=== PATIENT | female | born 1960 | race Asian ===

== ENCOUNTER 2022-12-12 20:46 | Inpatient (IN) | payer OTHER ==
[2022-12-12] MEDS ORDERED: ACETAMINOPHEN 1000 MG/100 ML BAG IVPB ONE (22:20)
[2022-12-12] MEDS ORDERED: ONDANSETRON 4 MG/2 ML VIAL IVPUSH ONE (22:48)
[2022-12-12 23:42] LABS: HEMATOCRIT 40.7 % (32.4-45.2); HEMOGLOBIN 13.7 GM/dL (10.7-15.3); MCH 28.3 pg (25.7-33.7); MCHC 33.5 g/dl (32.0-36.0); MEAN CELL VOLUME 84.3 fl (80-96); RBC 4.83 M/mm3 (3.60-5.2); RDW 14.4 % (11.6-15.6); WHITE BLOOD COUNT 18.6 K/mm3 (4.0-10.0)
[2022-12-12 23:46] LABS: EPI CELLS 15 /uL (0-25.1); HYALINE CASTS 1 /uL (0-3.1); URINE APPEARANCE CLEAR; URINE BACTERIA 12 /uL (0-1359); URINE BILIRUBIN NEGATIVE (NEGATIVE); URINE COLOR YELLOW; URINE GLUCOSE (UA) 3+ (NEGATIVE); URINE KETONE 4+ (NEGATIVE); URINE LEUK ESTERASE 1+ (NEGATIVE); URINE NITRITE NEGATIVE (NEGATIVE); URINE PROTEIN 1+ (NEGATIVE); URINE RBC 16 /uL (0-23.9); URINE UROBILINOGEN 0.2 mg/dL (0.2-1.0); URINE WBC 250 /uL (0-25.8)
[2022-12-12 23:51] LABS: INR 0.89 (0.83-1.09); PROTHROMBIN TIME (PATIENT) 10.3 SEC (9.7-13.0)
[2022-12-12 23:53] LABS: ACTIVATED PTT 30.7 SECONDS (25.2-36.5)
[2022-12-13 00:20] LABS: ANISOCYTOSIS 2+; MACROCYTOSIS 0; OVALOCYTE 2+
[2022-12-13 00:22] LABS: PLATELET COUNT 252 10^3/uL (134-434)
[2022-12-13 00:23] LABS: MEAN PLT VOLUME 7.8 fl (7.5-11.1)
[2022-12-13 00:31] LABS: POTASSIUM 3.7 mmol/L (3.5-5.1)
[2022-12-13 00:34] LABS: ALBUMIN 4.4 g/dl (3.4-5.0); CALCIUM 9.2 mg/dL (8.5-10.1)
[2022-12-13 00:35] LABS: BLOOD UREA NITROGEN 13.4 mg/dL (7-18); MAGNESIUM 1.4 mg/dL (1.8-2.4)
[2022-12-13 00:38] LABS: CREATININE 1.1 mg/dL (0.55-1.3)
[2022-12-13 00:39] LABS: BILIRUBIN,TOTAL 0.9 mg/dL (0.2-1); TOT PROT 8.3 g/dl (6.4-8.2)
[2022-12-13] MEDS ORDERED: CEFTRIAXONE 1,000 MG in DEXTROSE 5%-WATER - 50 ML IVPB ONE (03:48)
[2022-12-13] MEDS ORDERED: MAGNESIUM SULF 50% (8.12 MEQ/2 ML-1 GM VIAL) IVPB ONE (03:55)
[2022-12-13] MEDS ORDERED: CEFTRIAXONE 1 GM/50 ML BAG ONE ×2 (05:42→11:36)
[2022-12-13] MEDS ORDERED: MAGNESIUM SULFATE IN WATER 2 GM/50 ML IVPB IVPB ONE (05:42)
[2022-12-13] MEDS ORDERED: ACETAMINOPHEN 1000 MG/100 ML BAG IVPB ONE (06:50)
[2022-12-13] MEDS ORDERED: ACETAMINOPHEN INJECTION 100 ML IVPB ONE ×3 (06:50→18:40)
[2022-12-13] MEDS ORDERED: DEXTROSE 5%-0.45% SALINE 1,000 ML IV SCH (10:00)
[2022-12-13] MEDS ORDERED: CEFTRIAXONE 1 GM in DEXTROSE 5%-WATER - 50 ML IVPB SCH (10:00)
[2022-12-13] MEDS ORDERED: ENOXAPARIN NA (PORCINE) 40 MG/0.4 ML DISP.SYRIN SQ SCH (10:00)
[2022-12-13] MEDS ORDERED: ENOXAPARIN NA (PORCINE) 40 MG/0.4 ML DISP.SYRIN SQ ONE (11:36)
[2022-12-13] MEDS: ACETAMINOPHEN 1000 MG/100 ML BAG IVPB PRN ×2 (12:53→18:30)
[2022-12-13] MEDS ORDERED: ONDANSETRON 4 MG/2 ML VIAL IVPUSH PRN (17:14)
[2022-12-13] MEDS ORDERED: MIDAZOLAM HCL 2 MG/2 ML SINGLE DOSE VIAL ONE (17:45)
[2022-12-13] MEDS ORDERED: PROPOFOL 20 ML ONE ×2 (17:45→18:05)
[2022-12-13] MEDS ORDERED: IOHEXOL 180 MG/1 ML ML IJ ONE (18:07)
[2022-12-13] MEDS ORDERED: KETOROLAC TROMETHAMINE 30 MG/1 ML VIAL ONE (18:42)
[2022-12-13] MEDS ORDERED: ACETAMINOPHEN 1000 MG/100 ML BAG IVPB PRN (19:32)
[2022-12-13] MEDS: DEXTROSE 5%-0.45% SALINE 1,000 ML IV SCH (20:25)
[2022-12-13] MEDS ORDERED: INSULIN SLIDING SCALE (NOVOLOG) 1 VIAL SQ SCH (22:00)
[2022-12-13 22:46] VITALS: BMI 22.0
[2022-12-13] MEDS: INSULIN SLIDING SCALE (NOVOLOG) 1 VIAL SQ SCH (22:55)
[2022-12-14] MEDS: INSULIN SLIDING SCALE (NOVOLOG) 1 VIAL SQ SCH ×4 (06:00→21:47)
[2022-12-14] MEDS: DEXTROSE 5%-0.45% SALINE 1,000 ML IV SCH (07:47)
[2022-12-14] MEDS: ONDANSETRON 4 MG/2 ML VIAL IVPUSH PRN (09:22)
[2022-12-14] MEDS ORDERED: ENOXAPARIN NA (PORCINE) 40 MG/0.4 ML DISP.SYRIN SQ SCH (10:00)
[2022-12-14] MEDS: CEFTRIAXONE 1 GM in DEXTROSE 5%-WATER - 50 ML IVPB SCH (11:57)
[2022-12-14 11:59] LABS: HEMATOCRIT 36.7 % (32.4-45.2); HEMOGLOBIN 12.3 GM/dL (10.7-15.3); MCH 28.1 pg (25.7-33.7); MCHC 33.4 g/dl (32.0-36.0); MEAN PLT VOLUME 8.4 fl (7.5-11.1); PLATELET COUNT 85 10^3/uL (134-434); RBC 4.37 M/mm3 (3.60-5.2); RDW 14.5 % (11.6-15.6); WHITE BLOOD COUNT 16.8 K/mm3 (4.0-10.0)
[2022-12-14 12:24] LABS: POTASSIUM 3.2 mmol/L (3.5-5.1)
[2022-12-14 12:34] LABS: CALCIUM 7.9 mg/dL (8.5-10.1)
[2022-12-14 12:35] LABS: BLOOD UREA NITROGEN 31.6 mg/dL (7-18)
[2022-12-14 12:38] LABS: CREATININE 1.9 mg/dL (0.55-1.3)
[2022-12-14 12:40] LABS: BILIRUBIN,TOTAL 0.7 mg/dL (0.2-1)
[2022-12-14 12:42] LABS: ALBUMIN 2.7 g/dl (3.4-5.0); TOT PROT 6.1 g/dl (6.4-8.2)
[2022-12-14 12:44] LABS: ANISOCYTOSIS 0; MACROCYTOSIS 0
[2022-12-14] MEDS ORDERED: ACETAMINOPHEN 1000 MG/100 ML BAG IVPB PRN (19:25)
[2022-12-14] MEDS ORDERED: POTASSIUM CHLORIDE ORAL LIQUID 20 MEQ/15 ML PO ONE (19:27)
[2022-12-14] MEDS: KCL 10 MEQ IVPB 10 MEQ/100 ML INFUS.BAG IVPB SCH ×3 (19:30→21:47)
[2022-12-15] MEDS: DEXTROSE 5%-0.45% SALINE 1,000 ML IV SCH ×2 (05:19→12:17)
[2022-12-15] MEDS: INSULIN SLIDING SCALE (NOVOLOG) 1 VIAL SQ SCH ×4 (06:04→22:05)
[2022-12-15 09:49] LABS: HEMATOCRIT 35.8 % (32.4-45.2); MCH 27.8 pg (25.7-33.7); MCHC 33.3 g/dl (32.0-36.0); MEAN CELL VOLUME 83.5 fl (80-96); MEAN PLT VOLUME 8.9 fl (7.5-11.1); PLATELET COUNT 43 10^3/uL (134-434); RBC 4.29 M/mm3 (3.60-5.2); RDW 14.8 % (11.6-15.6); WHITE BLOOD COUNT 24.2 K/mm3 (4.0-10.0)
[2022-12-15 10:11] LABS: POTASSIUM 3.5 mmol/L (3.5-5.1)
[2022-12-15 10:17] LABS: ALBUMIN 2.5 g/dl (3.4-5.0); BLOOD UREA NITROGEN 25.8 mg/dL (7-18)
[2022-12-15 10:23] LABS: BILIRUBIN,TOTAL 0.6 mg/dL (0.2-1); TOT PROT 5.7 g/dl (6.4-8.2)
[2022-12-15 10:44] LABS: ANISOCYTOSIS 0; HELMET CELLS 0; HOWELL-JOLLY BODIES 0; MACROCYTOSIS 0; OVALOCYTE 0; ROULEAU 0; SICKELED CELLS 0; TARGET CELLS 0; TEAR DROP CELLS 0; TOXIC GRANULATION 0
[2022-12-15] MEDS: CEFTRIAXONE 1 GM in DEXTROSE 5%-WATER - 50 ML IVPB SCH (12:15)
[2022-12-15] MEDS: AZTREONAM 1 GM in DEXTROSE 5%-WATER 100 ML IVPB SCH (18:32)
[2022-12-16] MEDS: AZTREONAM 1 GM in DEXTROSE 5%-WATER 100 ML IVPB SCH ×3 (01:44→16:26)
[2022-12-16] MEDS: INSULIN SLIDING SCALE (NOVOLOG) 1 VIAL SQ SCH ×4 (06:00→22:48)
[2022-12-16] MEDS ORDERED: AZTREONAM 1 GM VIAL (RESTRICTED TO ID) ONE (08:04)
[2022-12-16] MEDS: ONDANSETRON 4 MG/2 ML VIAL IVPUSH PRN (08:19)
[2022-12-16] MEDS: metoPROLOL SUCCINATE 25 MG TAB.SR.24H (FP) PO SCH (11:07)
[2022-12-16 11:33] LABS: HEMATOCRIT 38.1 % (32.4-45.2); HEMOGLOBIN 12.7 GM/dL (10.7-15.3); MCH 27.6 pg (25.7-33.7); MCHC 33.3 g/dl (32.0-36.0); MEAN CELL VOLUME 82.8 fl (80-96); MEAN PLT VOLUME 9.6 fl (7.5-11.1); PLATELET COUNT 43 10^3/uL (134-434); RBC 4.59 M/mm3 (3.60-5.2); RDW 14.9 % (11.6-15.6); WHITE BLOOD COUNT 18.4 K/mm3 (4.0-10.0)
[2022-12-16] MEDS ORDERED: INSULIN SLIDING SCALE (NOVOLOG) 1 VIAL SQ ONE ×2 (11:39→16:44)
[2022-12-16 11:52] LABS: POTASSIUM 3.3 mmol/L (3.5-5.1)
[2022-12-16 11:55] LABS: CALCIUM 8.5 mg/dL (8.5-10.1)
[2022-12-16 11:57] LABS: ALBUMIN 2.5 g/dl (3.4-5.0)
[2022-12-16 11:59] LABS: CREATININE 0.7 mg/dL (0.55-1.3)
[2022-12-16 12:01] LABS: BILIRUBIN,TOTAL 0.6 mg/dL (0.2-1); TOT PROT 6.2 g/dl (6.4-8.2)
[2022-12-16 12:19] LABS: ANISOCYTOSIS 1+; MACROCYTOSIS 0
[2022-12-16] MEDS: amLODIPine BESYLATE 2.5 MG TABLET (FP) PO SCH ×2 (13:22→21:38)
[2022-12-16] MEDS ORDERED: POTASSIUM CHLORIDE ORAL LIQUID 20 MEQ/15 ML PO ONE (13:30)
[2022-12-16] MEDS: metFORMIN HCL 500 MG TABLET (FP) PO SCH (16:26)
[2022-12-16] MEDS ORDERED: amLODIPine BESYLATE 2.5 MG TABLET (FP) PO ONE (18:15)
[2022-12-16] MEDS: ATORVASTATIN CA 10 MG TABLET (FP) PO SCH (21:38)
[2022-12-17] MEDS: AZTREONAM 1 GM in DEXTROSE 5%-WATER 100 ML IVPB SCH ×3 (01:37→16:44)
[2022-12-17] MEDS: metFORMIN HCL 500 MG TABLET (FP) PO SCH ×2 (06:48→16:46)
[2022-12-17] MEDS: INSULIN SLIDING SCALE (NOVOLOG) 1 VIAL SQ SCH ×4 (06:49→21:05)
[2022-12-17 09:34] LABS: HEMATOCRIT 37.2 % (32.4-45.2); HEMOGLOBIN 12.5 GM/dL (10.7-15.3); MCH 27.8 pg (25.7-33.7); MCHC 33.6 g/dl (32.0-36.0); MEAN CELL VOLUME 82.7 fl (80-96); MEAN PLT VOLUME 8.9 fl (7.5-11.1); PLATELET COUNT 42 10^3/uL (134-434); RDW 15.2 % (11.6-15.6); WHITE BLOOD COUNT 12.4 K/mm3 (4.0-10.0)
[2022-12-17 10:02] LABS: POTASSIUM 3.2 mmol/L (3.5-5.1)
[2022-12-17 10:10] LABS: ALBUMIN 2.4 g/dl (3.4-5.0); CALCIUM 8.3 mg/dL (8.5-10.1)
[2022-12-17 10:12] LABS: BLOOD UREA NITROGEN 11.7 mg/dL (7-18)
[2022-12-17 10:14] LABS: CREATININE 0.7 mg/dL (0.55-1.3)
[2022-12-17 10:16] LABS: BILIRUBIN,TOTAL 1.2 mg/dL (0.2-1); TOT PROT 5.9 g/dl (6.4-8.2)
[2022-12-17] MEDS: metoPROLOL SUCCINATE 25 MG TAB.SR.24H (FP) PO SCH (10:40)
[2022-12-17] MEDS: amLODIPine BESYLATE 2.5 MG TABLET (FP) PO SCH ×2 (10:41→21:05)
[2022-12-17 10:57] LABS: ANISOCYTOSIS 0; MACROCYTOSIS 0
[2022-12-17] MEDS ORDERED: INSULIN SLIDING SCALE (NOVOLOG) 1 VIAL SQ ONE (11:42)
[2022-12-17] MEDS ORDERED: POTASSIUM CHLORIDE TABS 20 MEQ TABLET.ER (FP) PO ONE (14:45)
[2022-12-17] MEDS: ATORVASTATIN CA 10 MG TABLET (FP) PO SCH (21:05)
[2022-12-18] MEDS: AZTREONAM 1 GM in DEXTROSE 5%-WATER 100 ML IVPB SCH ×2 (00:14→08:40)
[2022-12-18] MEDS: INSULIN SLIDING SCALE (NOVOLOG) 1 VIAL SQ SCH ×4 (06:14→17:27)
[2022-12-18] MEDS: metFORMIN HCL 500 MG TABLET (FP) PO SCH ×2 (06:14→17:25)
[2022-12-18] MEDS: metoPROLOL SUCCINATE 25 MG TAB.SR.24H (FP) PO SCH (10:47)
[2022-12-18] MEDS: amLODIPine BESYLATE 2.5 MG TABLET (FP) PO SCH ×2 (10:47→22:15)
[2022-12-18] MEDS ORDERED: MAGNESIUM OXIDE 400 MG TABLET (FP) PO ONE (12:44)
[2022-12-18] MEDS ORDERED: POTASSIUM CHLORIDE ORAL LIQUID 20 MEQ/15 ML PO ONE ×2 (14:57→20:37)
[2022-12-18] MEDS ORDERED: KCL 10 MEQ IVPB 10 MEQ/100 ML INFUS.BAG IVPB SCH (15:00)
[2022-12-18 18:16] LABS: BASO % 0.3 % (0-2.0); EOS % 0.7 % (0-4.5); HEMATOCRIT 34.6 % (32.4-45.2); HEMOGLOBIN 11.6 GM/dL (10.7-15.3); LYMPH % 10.8 % (8-40); MCHC 33.6 g/dl (32.0-36.0); MEAN CELL VOLUME 83.4 fl (80-96); MEAN PLT VOLUME 8.9 fl (7.5-11.1); MONO % 15.6 % (3.8-10.2); NEUT % 72.6 % (42.8-82.8); PLATELET COUNT 84 10^3/uL (134-434); RBC 4.15 M/mm3 (3.60-5.2); RDW 15.3 % (11.6-15.6); WHITE BLOOD COUNT 12.9 K/mm3 (4.0-10.0)
[2022-12-18 18:50] LABS: ANISOCYTOSIS 1+; MACROCYTOSIS 0; TEAR DROP CELLS 1+
[2022-12-18] MEDS: ATORVASTATIN CA 10 MG TABLET (FP) PO SCH (22:15)
[2022-12-18] MEDS: KCL 10 MEQ IVPB 10 MEQ/100 ML INFUS.BAG IVPB SCH (22:15)
[2022-12-18 22:20] VITALS: RESP 20
[2022-12-19] MEDS: KCL 10 MEQ IVPB 10 MEQ/100 ML INFUS.BAG IVPB SCH ×2 (00:30→01:44)
[2022-12-19] MEDS: INSULIN SLIDING SCALE (NOVOLOG) 1 VIAL SQ SCH ×3 (00:31→12:48)
[2022-12-19] MEDS: metFORMIN HCL 500 MG TABLET (FP) PO SCH (06:31)
[2022-12-19 07:28] VITALS: PULSE 87
[2022-12-19] MEDS: metoPROLOL SUCCINATE 25 MG TAB.SR.24H (FP) PO SCH (09:53)
[2022-12-19] MEDS: amLODIPine BESYLATE 2.5 MG TABLET (FP) PO SCH (09:53)
[2022-12-19 10:48] VITALS: BP 149/84; TEMP 98.6
[2022-12-19 11:20] LABS: HEMOGLOBIN 11.3 GM/dL (10.7-15.3); MCH 27.7 pg (25.7-33.7); MCHC 33.3 g/dl (32.0-36.0); MEAN CELL VOLUME 83.1 fl (80-96); MEAN PLT VOLUME 8.4 fl (7.5-11.1); PLATELET COUNT 129 10^3/uL (134-434); RBC 4.09 M/mm3 (3.60-5.2); RDW 15.5 % (11.6-15.6); WHITE BLOOD COUNT 12.1 K/mm3 (4.0-10.0)
[2022-12-19 11:52] LABS: ANISOCYTOSIS 1+; MACROCYTOSIS 0
[2022-12-19 12:07] LABS: ALBUMIN 2.5 g/dl (3.4-5.0); CALCIUM 8.3 mg/dL (8.5-10.1)
[2022-12-19 12:08] LABS: BLOOD UREA NITROGEN 12.4 mg/dL (7-18)
[2022-12-19 12:10] LABS: CREATININE 0.5 mg/dL (0.55-1.3)
[2022-12-19 12:12] LABS: BILIRUBIN,TOTAL 0.9 mg/dL (0.2-1); TOT PROT 6.1 g/dl (6.4-8.2)
== END 2022-12-19 13:54 | disposition home or self-care (01) | DRG 463 ==
LOC: JER 20:46 → JERBED 12-13 03:44 → J5S 12-13 21:16
PROVIDERS: ADMIT Internal Medicine; ATTEND Internal Medicine
PROC: 0TJ98ZZ Inspection of Ureter, Via Natural or Artificial Opening Endoscopic (ICD-10-PCS; 2022-12-13)
PROC: 0T768DZ Dilation of Right Ureter with Intraluminal Device, Via Natural or Artificial Opening Endoscopic (ICD-10-PCS; principal; 2022-12-13 17:00)
PROC: BT1DZZZ Fluoroscopy of Right Kidney, Ureter and Bladder (ICD-10-PCS; 2022-12-13 17:00)
DX: N13.6 Pyonephrosis (principal); N17.9 Acute kidney failure, unspecified; D69.6 Thrombocytopenia, unspecified; E11.9 Type 2 diabetes mellitus without complications; E87.6 Hypokalemia; T36.1X5A Adverse effect of cephalosporins and other beta-lactam antibiotics, initial encounter
CPT/HCPCS: 36415; 71045-TC-FY; 74177-TC; 80053; 81003; 82962; 83735; 84132; 85025; 85610; 85730; 86850; 86900; 86901; 87040; 87086; 93005; 93010; 94760; 99285-25; C2617; Q9967